=== PATIENT | female | born 1970 | race African-American/Black ===

== ENCOUNTER 2021-07-17 14:30 | Inpatient (IN) | payer MEDICARE, OTHER ==
[2021-07-17] VITALS (12 sets, daily range): BP systolic 138–163; BP diastolic 78–115
[~2021-07-17] VITALS: Ht 161.3 cm; Wt 46.3 kg
--- NOTE | 2021-07-17 14:45 | NUR ---
Pt arrived to the unit via ambulance accompany by two EMT'S admitted to Tele. Pt came has a direct admit from [facility] ER. Pt was awake, alert and oriented x4. was place in bed vital signs was taken BP 162/95 TEMP 98.1 HR 109 R 21 O2SAT 97% O2 via nasal canula at 2L/min. Addendum: 07/17/21 at 1711 by LIVIA RUFFIN RN MD Correa made aware of the admission.
[2021-07-17] MEDS ORDERED: ONDANSETRON 4 MG/2 ML VIAL IV PRN (15:15)
[2021-07-17] MEDS ORDERED: REMEDY ESSENTIAL ZINC PASTE 113 GM TP PRN (15:15)
--- NOTE | 2021-07-17 15:55 | NUR ---
Pt begin complaining of difficulty of breathing and having shortness of breath. O2 SAT at this time is 98% on 2L/min. on tele monitoring, heart rate 130-[address]. [address] Correa and BP was 188/[address] Correa, seen the pt at bedside and ordered face mask and increase O2 to 10L/min and ordered BIPAP and elevated head of bed. Pt was placed on BIPAP by RT, pt sweating profusely.
[2021-07-17] MEDS ORDERED: FUROSEMIDE 40 MG/4 ML VIAL IV ONE ×2 (16:15)
[2021-07-17] MEDS ORDERED: NITROGLYCERIN IV 250 ML IV PRN (16:15)
[2021-07-17] MEDS ORDERED: FUROSEMIDE 20 MG/2 ML VIAL IV ONE (16:15)
--- NOTE | 2021-07-17 16:15 | NUR ---
Patient sweating profusely and in labor breathing in the unit and at this time she received 80mg of lasix ordered stat. ekg and ABG in progress. pt. will be placed on bipap as ordered.
--- NOTE | 2021-07-17 16:20 | NUR ---
Vital signs taken BP 188/116 HR 132 O2SAT 100% via BIPAP, with order to transfer pt to ER. Lasix 80mg IV PUSH order was administered by the charge nurse, tolerated well and pt was transferred to ER for further evaluation and treatment.
[2021-07-17 16:24] LABS: ABG BASE EXCESS -7.6 mmol/L; ABG HCO3 19.3 mmol/L; ABG PCO2 44.4 mmHg (35.0-45.0); ABG PH 7.256 (7.350-7.450); ABG PO2 64.9 mmHg (75.0-100.0); ABG SITE RIGHT RADIAL; ABG TOTAL HEMOGLOBIN 13.1 G/dL (12.0-16.0); COHb 0.9 % (0.5-1.5); MetHb 0.1 % (0.0-1.5); O2Hb 87.1 % (94.0-97.0)
--- NOTE | 2021-07-17 16:30 | NUR ---
Patient remains in distress after been placed on bipap sbp of 187/112. after 80 mg of lasix ivp as ordered. Attending in the unit and orders to upgrade pt to ICU status received. Assistant Center Manager informed and orders to transfer pt. to ER received and implemented stat due to the need to start pt. on nitroglycerin drip. Patient taken down and placed on ER. room 5 Md at bedside.
--- NOTE | 2021-07-17 16:40 | NUR ---
Both attending and ER physician at bedside, blood gases reported to both physicians with RT at bedside. Direct admission documentation given to triage R.N.
--- NOTE | 2021-07-17 16:45 | NUR ---
patient started on Nitro drip at 50mcg. per ER and Dr. Correa at bedside order
--- NOTE | 2021-07-17 16:45 | NUR ---
patient brought down from medical floor as a direct admit. patient upon admission was not doing well she was awake complaining of shortness of breath per report. patient was placed on bipap, patient brought down to ER for ICU care patient lethargic, diaphoretic, tachycardiac on the monitor no saturation at the time. patient evaluated by ER doctor with possible intubation due to decompensation, patient also had ordered for nitro drip which was started and a repeat abg will be done. dr cardoza was called and spoke to dr rodriguez regarding history and diagnosis
[2021-07-17] MEDS ORDERED: ALBUTEROL SULFATE 2.5 MG/3 ML NEBU ONE (17:00)
[2021-07-17] MEDS ORDERED: IPRATROPIUM BROMIDE 0.5 MG/2.5 ML NEBU ONE (17:00)
[2021-07-17 17:23] LABS: ABG BASE EXCESS -2.7 mmol/L; ABG HCO3 23.7 mmol/L; ABG PCO2 47.6 mmHg (35.0-45.0); ABG PH 7.315 (7.350-7.450); ABG SITE RIGHT RADIAL; ABG TOTAL HEMOGLOBIN 12.5 G/dL (12.0-16.0); COHb 0.3 % (0.5-1.5); MetHb 0.3 % (0.0-1.5); O2Hb 98.1 % (94.0-97.0); VENT MODE BIPAP
[2021-07-17] MEDS: IPRATROPIUM BROMIDE 0.5 MG/2.5 ML NEBU NEB PRN (17:34)
[2021-07-17] MEDS: ALBUTEROL SULFATE 2.5 MG/3 ML NEBU NEB PRN (17:34)
--- NOTE | 2021-07-17 17:50 | NUR ---
right upper arm midline per Jose picc line nurse. consent obtained for picc per patient if further deterioration
--- NOTE | 2021-07-17 21:15 | NUR ---
HD treatment completed and tolerated procedure well 2L UF
--- NOTE | 2021-07-17 21:30 | NUR ---
Dr To at bedside, ordered to dc Bi-pap and change to nasal cannula at 5L/min, RT at bedside.
--- NOTE | 2021-07-17 22:09 | NUR ---
For transfer to tele room 312 as soon as bed is available. VSS. Pt AAOX4. Respiration even and unlabored. O2 sat 98% on 5L NC. Denies any pain/discomfort.
--- NOTE | 2021-07-17 22:55 | NUR ---
Report given to Rosaura for continuity of care. Pt transferred via bed to [facility] accompanied by 2 RN. Condition stable. Denies any pain/discomfort. On NC at 5L/min Respiration even and unlabored, Sat adeq at 98%. Endorsed to Rosaura to ff-up with Dr Correa re troponin result.
--- NOTE | 2021-07-17 23:00 | NUR ---
Received pt from er via yen. Pt on 5l Nasal cannula. Iv intact. Belonging list done. group home assessment done. Safety and comfort provided. Will continue to monitor.
--- NOTE | 2021-07-17 23:03 | NUR ---
At 2302H notify Dr. Correa regarding pt troponin is 178. ordered Heparin 5000U SQ BID and repeat trop in 2 hours and let technology infusion specialist physician results know if troponin is going up.
[2021-07-17] MEDS: HEPARIN SODIUM,PORCINE 5,000 UNITS/ML VIAL SQ SCH (23:53)
[2021-07-18] MEDS: ACETAMINOPHEN 325 MG TABLET PO PRN (00:08)
[2021-07-18] MEDS: IPRATROPIUM BROMIDE 0.5 MG/2.5 ML NEBU NEB PRN (04:14)
[2021-07-18] MEDS: ALBUTEROL SULFATE 2.5 MG/3 ML NEBU NEB PRN (04:14)
[2021-07-18 04:32] VITALS: BP 163/98
--- NOTE | 2021-07-18 04:39 | NUR ---
notify application tester regarding pt having anxiety. Pt stating she can't breathe. Oxygen saturation shows 95% . Pt is asking if she can have antianxiety medication. Waiting for to reply back.
--- NOTE | 2021-07-18 05:04 | NUR ---
notify sewage reticulation drafting officer troponin is 248. waiting for callback. Pt in no acute distress. Pt sinus tachycardia 107 on monitor.
[2021-07-18] MEDS ORDERED: NITROGLYCERIN IV 250 ML IV PRN (06:00)
--- NOTE | 2021-07-18 06:14 | NUR ---
Pt slept intermittently. Pt in no acute distress. Iv intact. Prescribed medication given and pt tolerated it well. Breathing treatment given one time. Tylenol 650 mg prn given at 0008H for back pain. Pt tolerated it well. Vital signs within normal limit. Safety and comfort provided. Will endorse to incoming nurse for continuity of care.
[2021-07-18] MEDS: METOPROLOL TARTRATE 50 MG TABLET PO SCH ×2 (06:43→20:05)
--- NOTE | 2021-07-18 06:57 | NUR ---
Dr. Eden ordered for pt to be on BIPAP. Pt in no acute distress. Will endorse to incoming nurse.
[2021-07-18 07:30] LABS: BILIRUBIN,TOTAL 0.5 mg/dL (0.2-1.0); CREATININE 5.8 mg/dL (0.6-1.3); TOTAL PROTEIN, SERUM 6.8 g/dL (6.4-8.2)
[2021-07-18] MEDS ORDERED: METOLAZONE 2.5 MG TABLET PO ONE (07:30)
[2021-07-18 07:34] LABS: HEMATOCRIT 33.7 % (31.2-41.9); MEAN CORPUSCULAR HEMOGLOBIN 30.5 uug (24.7-32.8); MEAN CORPUSCULAR VOLUME 90.7 fL (75.5-95.3); PLATELET COUNT (AUTO) 174 K/uL (179-408)
--- NOTE | 2021-07-18 08:00 | NUR ---
AWAKE ALERT AND ORIENTED X3 C/O SOB, SEEN BY DR BOYLE WITH ORDER TO START ON BI-PAP DUE TO O2 RETENTION, RESPIRATORY AT BEDSIDE WITH PROPER SETTINGS. PATIENT IS SR ON MONITOR
[2021-07-18 08:37] LABS: THYROID STIMULATING HORMONE 1.379 mIU/mL (0.358-3.740)
[2021-07-18] MEDS: ASPIRIN 81 MG TAB.CHEW PO SCH (08:47)
[2021-07-18] MEDS: AMLODIPINE 5 MG TABLET PO SCH (08:52)
[2021-07-18] MEDS: FUROSEMIDE 100 MG/10 ML VIAL IV SCH ×2 (08:53→20:04)
[2021-07-18] MEDS: HEPARIN SODIUM,PORCINE 5,000 UNITS/ML VIAL SQ SCH ×2 (08:55→20:06)
--- NOTE | 2021-07-18 11:39 | NUR ---
TOLERATING BPAP FAIRLY AT A RATE OF 18-16/5-40% SATURATING 96-98%. GETS IRRITABLE DUE TO SOB. SR ON MONITOR
[2021-07-18 12:00] VITALS: BP 139/96
--- NOTE | 2021-07-18 12:00 | NUR ---
HD STARTED AT BESIDE, CLOSELY MONITORED
[2021-07-18] MEDS ORDERED: AMLO-212 PO ×2 (12:01)
[2021-07-18] MEDS ORDERED: SACU1TAB PO (12:04)
[2021-07-18] MEDS ORDERED: AMLO10TA59 PO (12:04)
[2021-07-18] MEDS ORDERED: FOLI1TAB94 PO (12:04)
[2021-07-18] MEDS ORDERED: MEGE400O5 PO (12:07)
--- NOTE | 2021-07-18 15:46 | NUR ---
DIALYSIS COMPLETED AND REMOVED 2L OF FLUID
[2021-07-18 16:00] VITALS: BP 143/90
--- NOTE | 2021-07-18 17:45 | NUR ---
RESTING COMFORTABLY, TAKES OFF O2 ON AND OFF, NO SIGNS OF DISTRESS
[2021-07-18] MEDS: ATORVASTATIN 40 MG TABLET PO SCH (20:05)
[2021-07-18 20:36] VITALS: BP 144/90
[2021-07-19 00:20] VITALS: BP 133/93
--- NOTE | 2021-07-19 02:28 | NUR ---
PATIENT REFUSING BI/PAP MACHINE, PT VERY ALERT AND COHERENT, WITH NO SIGNS OF RESP. DISTRESS, PT NOT EVEN WEARING HER O2 ALL SHIFT, SAT 96% ON ROOM AIR. Briana FLANAGAN RAG PRODUCTION WORKER
[2021-07-19 04:38] VITALS: BP 129/80
[2021-07-19 06:06] LABS: HEPATITIS B SURFACE AG Negative (Negative)
--- NOTE | 2021-07-19 06:23 | NUR ---
Pt slept throughout the night. Denies pain or SOB. Able to make needs known. Refuses to use oxygen at this time and states that she has no SOB and does not need it right now. Safety maintained throughout shift. IV sites intact. Will endorse to day shift.
[2021-07-19] MEDS: ASPIRIN 81 MG TAB.CHEW PO SCH (08:55)
[2021-07-19] MEDS: AMLODIPINE 5 MG TABLET PO SCH (08:55)
[2021-07-19] MEDS: HEPARIN SODIUM,PORCINE 5,000 UNITS/ML VIAL SQ SCH ×2 (08:56→23:36)
[2021-07-19] MEDS: METOPROLOL SUCCINATE XL 50 MG TAB.SR.24H PO SCH ×2 (08:58→23:33)
[2021-07-19] MEDS: FUROSEMIDE 40 MG TABLET PO SCH ×2 (08:58→23:34)
[2021-07-19 09:17] LABS: HEMATOCRIT 36.6 % (31.2-41.9); MEAN CORPUSCULAR HEMOGLOBIN 30.7 uug (24.7-32.8); MEAN CORPUSCULAR VOLUME 90.7 fL (75.5-95.3); PLATELET COUNT (AUTO) 205 K/uL (179-408)
[2021-07-19 09:20] LABS: CREATININE 5.6 mg/dL (0.6-1.3); POTASSIUM 5.2 mmol/L (3.5-5.1)
[2021-07-19 12:00] VITALS: BP 151/83
--- NOTE | 2021-07-19 14:45 | NUR ---
Contacted Dr. Murphy about pain medication for patients back and expressions of "suicidal ideation" reported to this procedure writer and data architect manager Nakul. Patient states she has very bad back pain and is very tearful in general.
[2021-07-19 16:00] VITALS: BP 153/86
[2021-07-19] MEDS: ACETAMINOPHEN 325 MG TABLET PO PRN (17:31)
[2021-07-19 20:00] VITALS: BP 119/86
--- NOTE | 2021-07-19 20:10 | NUR ---
Patient resting in bed comfortably.Denies pain .No SOB.On Ra,NSR on Tele.Midline on right upper arm patent and intact.Av Shunt on left upper arm .HD started at bedside.Will continue to monitor.
[2021-07-19] MEDS ORDERED: TRAMADOL HCL 50 MG TABLET PO PRN (22:00)
[2021-07-19] MEDS: ATORVASTATIN 40 MG TABLET PO SCH (23:33)
[2021-07-20] VITALS: BP 128/72
--- NOTE | 2021-07-20 00:10 | NUR ---
Dialysis completed and removed 2000 ml Of fluid.BP 128/72,76, 18 No acute distress noted .On RA.Saturating well.Will continue to monitor.
[2021-07-20 04:00] VITALS: BP 132/79
[2021-07-20 06:32] LABS: HEMATOCRIT 33.8 % (31.2-41.9); MEAN CORPUSCULAR HEMOGLOBIN 30.3 uug (24.7-32.8); MEAN CORPUSCULAR VOLUME 90.2 fL (75.5-95.3); PLATELET COUNT (AUTO) 184 K/uL (179-408)
[2021-07-20 06:40] LABS: BILIRUBIN,TOTAL 0.5 mg/dL (0.2-1.0); CREATININE 4.9 mg/dL (0.6-1.3); MAGNESIUM 2.3 mg/dL (1.8-2.4); PHOSPHOROUS 5.1 mg/dL (2.5-4.9); POTASSIUM 4.1 mmol/L (3.5-5.1); TOTAL PROTEIN, SERUM 6.6 g/dL (6.4-8.2)
[2021-07-20] MEDS ORDERED: NEPRO (VANILLA) 237 ML CAN PO SCH (09:00)
[2021-07-20] MEDS: HEPARIN SODIUM,PORCINE 5,000 UNITS/ML VIAL SQ SCH (09:00)
[2021-07-20] MEDS ORDERED: ASPI81TA31 PO (09:23)
[2021-07-20] MEDS ORDERED: FURO40TA5 PO (09:23)
[2021-07-20] MEDS ORDERED: ATOR40TA PO (09:23)
[2021-07-20] MEDS ORDERED: METO-357 PO (09:23)
[2021-07-20 09:30] VITALS: BP 139/84
[2021-07-20] MEDS: FUROSEMIDE 40 MG TABLET PO SCH (09:30)
[2021-07-20] MEDS: AMLODIPINE 5 MG TABLET PO SCH (09:30)
[2021-07-20] MEDS: METOPROLOL SUCCINATE XL 50 MG TAB.SR.24H PO SCH (09:30)
[2021-07-20] MEDS: ASPIRIN 81 MG TAB.CHEW PO SCH (09:30)
--- NOTE | 2021-07-20 11:00 | NUR ---
Patient discharged in stable condition with all belongings. IV removed. Patient received discharge packet/ instructions with new prescriptions. Patient verbalized understanding of discharge.
== END 2021-07-20 11:30 | disposition home or self-care (01) | DRG 280 ==
LOC: TELE3 14:30 → UNDOADMIN 14:30 → OBSER 17:18 → TRANSITION 17:47 → TELE3 22:00 → MEDSURG3 07-20 07:48
PROVIDERS: ADMIT Internal Medicine; ATTEND Internal Medicine
PROC: 5A1D70Z Performance of Urinary Filtration, Intermittent, Less than 6 Hours Per Day (ICD-10-PCS; principal; 2021-07-17)
PROC: 5A09357 Assistance with Respiratory Ventilation, Less than 24 Consecutive Hours, Continuous Positive Airway Pressure (ICD-10-PCS; 2021-07-17)
DX: I13.2 Hypertensive heart and chronic kidney disease with heart failure and with stage 5 chronic kidney disease, or end stage renal disease (principal); N18.6 End stage renal disease; I21.A1 Myocardial infarction type 2; J96.01 Acute respiratory failure with hypoxia; I50.23 Acute on chronic systolic (congestive) heart failure; I16.1 Hypertensive emergency; Q61.3 Polycystic kidney, unspecified; I50.84 End stage heart failure; Z99.2 Dependence on renal dialysis; I08.1 Rheumatic disorders of both mitral and tricuspid valves; I42.0 Dilated cardiomyopathy; F32.A Depression, unspecified; F41.9 Anxiety disorder, unspecified; I25.10 Atherosclerotic heart disease of native coronary artery without angina pectoris
CPT/HCPCS: 36415; 36600; 71045; 83735; 84100; 84443; 84484; 85025; 86706; 87340; 90937; 93005; 93307; 94660; 94664; 99082-TC; A4663; G0378; J1644; J1940; J2405; J3490; J3590